=== PATIENT | female | born 1980 | race Caucasian/White ===

== ENCOUNTER 2018-04-27 01:55 | Inpatient (IN) | payer MEDICAID ==
[2018-04-27 01:56] VITALS: BMI 31.1
[2018-04-27 02:05] VITALS: O2SAT 99
--- NOTE | 2018-04-27 02:15 | C.PDOC ---
History Of Present Illness Patient was seen and medically cleared in [place] and accepted for transfer by Dr. Arechiga for psych admission. Patient has no physical complaints at this time. Time Seen by Provider: 04/27/18 02:14 Chief Complaint (Nursing): Psychiatric Evaluation History Per: Patient, EMS History/Exam Limitations: no limitations Onset/Duration Of Symptoms: Days Current Symptoms Are (Timing): Still Present Suicide/Self Injury Attempted (Context): None Modifying Factor(s): None Severity: None Pain Scale Rating Of: 0 Associated Symptoms: Depression Involuntary Hold By: None Recent travel outside of the [place]: No Past Medical History Reviewed: Historical Data, Nursing Documentation, Vital Signs Vital Signs: Last Vital Signs Temp 98.5 F 04/27/18 02:01 Pulse 71 04/27/18 02:01 Resp 18 04/27/18 02:50 BP 137/79 04/27/18 02:01 Pulse Ox 99 04/27/18 02:18 - Medical History PMH: Anxiety, Depression Surgical History: Cholecystectomy Family History: States: No Known Family Hx - Social History Hx Alcohol Use: No Hx Substance Use: No Review Of Systems Constitutional: Negative for: Fever, Chills Cardiovascular: Negative for: Chest Pain, Palpitations Respiratory: Negative for: Cough, Shortness of Breath Gastrointestinal: Negative for: Nausea, Vomiting Physical Exam - Physical Exam Appears: Non-toxic Skin: Warm, Dry Head: Normacephalic Oral Mucosa: Moist Chest: Symmetrical, No Tenderness Cardiovascular: Rhythm Regular Respiratory: No Rales, No Rhonchi, No Wheezing Gastrointestinal/Abdominal: Soft, No Tenderness Neurological/Psych: Oriented x3 Gait: Steady ED Course And Treatment O2 Sat by Pulse Oximetry: 99 Pulse Ox Interpretation: Normal Disposition Discussed With : Shaunna Arechiga Comment: accepted the pt on his service and took over the care at 2:15 AM Doctor Will See Patient In The: Hospital Counseled Patient/Family Regarding: Studies Performed, Diagnosis - Disposition Disposition: HOSPITALIZED Disposition Time: 02:14 Condition: FAIR - POA Present On Arrival: None - Clinical Impression Clinical Impression: Major depression - Scribe Statement The provider has reviewed the documentation as recorded by the Scribe Torsten Dejesus All medical record entries made by the Scribe were at my direction and personally dictated by me. I have reviewed the chart and agree that the record accurately reflects my personal performance of the history, physical exam, medical decision making, and the department course for this patient. I have also personally directed, reviewed, and agree with the discharge instructions and disposition. Decision To Admit - Pt Status Changed To: Hospital Disposition Of: Inpatient - Admit Certification Admit to Inpatient:: After my assessment, the patient will require hospitalization for at least two midnights. This is because of the severity of symptoms shown, intensity of services needed, and/or the medical risk in this patient being treated as an outpatient. - InPatient: Physician Admission Certification: I certify that this patient requires 2 or more midnights of care for the following reason:: After my assessment, the patient will require hospitalization for at least two midnights. This is because of the severity of symptoms shown, intensity of services needed, and/or the medical risk in this patient being treated as an outpatient. - . Bed Request Type: Psychiatry Admitting Physician: Shaunna Arechiga Patient Diagnosis: Major depression
[2018-04-27 03:12] VITALS: RESP 18
--- NOTE | 2018-04-27 03:59 | PCM.BM ---
Treatment Plan Problems - Problems identified on initial assessmt DEPRESSION Date Initiated: 04/27/18 Time Initiated: 03:15 Assessment reference: NA Status: Active SUICIDAL IDEATION Date Initiated: 04/27/18 Time Initiated: 03:15 Assessment reference: NA Status: Active Treatment assets and liabiliti Patient Assests: adapts well, cooperative, self-reliant, ADL independent, good support system, negotiates basic needs Patient Liabilities: relationship conflicts, medical problems - Milieu Protocol Maintain good personal hygiene: daily Encourage regular showers, daily Remind patient to perform daily oral care, daily Assist patient to perform ADL's Maintain personal safety: every shift Educate patient to report safety concerns to staff, every shift Monitor environment for contraband/sharps Medication safety: Monitor for expected outcome, potential side effects: every shift, Assess barriers to learning: every shift, Assess readiness for medication education: every shift
--- NOTE | 2018-04-27 10:46 | PCM.PSYCH ---
Initial Psychiatric Evaluation - Initial Psychiatric Evaluation Type of Admission: Voluntary Legal Status: Capacity Chief Complaint (in patient's own words): I was feeling frustrated and suicidal.' History of Present Illness and Precipitating Events: Pt is a 37 years old CF who lives with her BF and 2 kids was, a transferred from [facility] with diagnosis of Major Depressive Disorder, because of depressed mood and Suicidal Ideation. As per the ED note, patient has been on Prozac for quite sometimes and stop taking it because she was feeling like a Zombie. Patient claimed she become more depressed each day feeling very overwhelmed. Patient took a friends Fentanyl by snorting it so she could go to sleep and never wake up. Also, she claimed of suicide attempt last year by OD on Tramadol. She reports of racing of thoughts, flight of ideas, poor concentration and poor appetite. She also reports of irritability and poor sleep. She denies any auditory or visual hallucinations or any paranoia. She reports a past history of suicidal attempt by overdose, last year. She also reports at times depressed mood, feelings of hopelessness and helplessness and poor sleep. She denies any drinking or any drugs. PMH: None reported Current Medications: Active Medications Generic Name Dose Route Start Last Admin Trade Name Freq PRN Reason Stop Dose Admin Hydroxyzine HCl 25 mg 04/27/18 03:20 04/27/18 03:29 Atarax PO 25 mg Q6 PRN Administration Anxiety Pneumococcal Polyvalent Vaccine 0.5 ml 04/29/18 10:00 Pneumovax 23 Vaccine IM 04/29/18 10:01 .ONCE ONE Past Psychiatric History - Past Psychiatric History Previous Treatment History: None Pertinent Medical Hx (Current Medical&Sleep Prob, Allergies): Allergies Allergy/AdvReac Type Severity Reaction Status Date / Time No Known Allergies Allergy Verified 12/28/17 22:18 No Known Home Med 04/27/18 Review of Systems - Review of Systems All systems: reviewed and no additional remarkable complaints except - Psychiatric Psychiatric: Anxiety, Irritability, Mood Swings, Suicidal Ideation Mental Status Examination - Personal Presentation Personal Presentation: Looks stated age - Affect Affect: Constricted, Depressed - Motor Activity Motor Activity: Psychomotor Agitation - Reliability in Providing Information Reliability in Providing Information: Fair - Speech Speech: Organized - Mood Mood: Depressed, Anxious - Formal Thought Process Formal Thought Process: Flight of ideas, Circumstantial - Obsessions/Compulsions Obsessions: No Compulsions: No - Cognitive Functions Orientation: Person, Place, Situation, Time Sensorium: Alert Attention/Concentration: Attentive Abstract Thinking: [place] Estimate of Intelligence: Below average Judgement: Imparied, as evidence by: Poor judgement, Imparied, as evidence by: Lack of insight into illness - Risk Risk: Suicidal, Diminished functioning - Strength & Assets Inventory Strength & Assets Inventory: Family support DSM 5 DX - DSM 5 DSM 5 Diagnosis: Bipolar disorder mixed severe without psychotic features - Recommended/Plan of Treatment Treatment Recommendations and Plan of Treatment: Bipolar disorder mixed severe without psychotic features CBT Psychoeducation Supportive therapy, group therapy, individual therapy Trazodone 50 mg by mouth daily at bedtime Hydroxyzine 25 mg by mouth every 6 hours when necessary Gabapentin 100 mg po TID Depakote 250 mg by mouth twice a day - Smoking Cessation Smoking Cessation Initiated: No
--- NOTE | 2018-04-28 14:19 | PCM.PYCHPN ---
Psychiatric Progress Note - Psychiatric Progress Note Patient seen today, length of contact: 15 min Patient Chief Complaint: I was feeling frustrated.' Problems Identified/Issues Discussed: Patient seen and evaluated, chart reviewed and discussed with the nurse. Patient remained irritable and reports racing of thoughts and flight of ideas. She remained isolated, confined and withdrawn. She reports improvement in her depressed mood and anxiety. Patient is compliant with medications and denies any side effects. Symptoms are improving but need more time to stabilize. Support and psychoeducation given. Medication Change: Yes Medical Record Reviewed: Yes Mental Status Examination - Cognitive Function Orientation: Person, Place, Situation, Time Memory: Intact Attention: WNL Concentration: Poor Association: WNL Fund of Knowledge: Poor - Mood Mood: Depressed, Anxious - Affect Affect: Constricted, Depressed - Speech Speech: Soft - Formal Thought Process Formal Thought Process: Flight of ideas, Circumstantial - Suicidal Ideation Suicidal Ideation: No - Homicidal Ideation Homicidal Ideation: No Goal/Treatment Plan - Goal/Treatment Plan Need for Continued Stay: Severe depression anxiety, Severe functional impairment Progress Toward Problem(s) and Goals/Treatment Plan: Bipolar disorder mixed severe without psychotic features CBT Psychoeducation Supportive therapy, group therapy, individual therapy Trazodone 50 mg by mouth daily at bedtime Hydroxyzine 25 mg by mouth every 6 hours when necessary Gabapentin 100 mg po TID Depakote 250 mg by mouth twice a day - Smoking Cessation Smoking Cessation Initiated: No
[2018-04-28] MEDS: Divalproex 500 mg ER Tab PO SCH (21:05)
[2018-04-29] MEDS ORDERED: Pneumococcal 23-Valent Vaccine IM ONE (10:00)
--- NOTE | 2018-04-29 12:03 | PCM.PYCHPN ---
Psychiatric Progress Note - Psychiatric Progress Note Patient seen today, length of contact: 16 min Patient Chief Complaint: I m feeling better.' Problems Identified/Issues Discussed: Patient seen and evaluated, chart reviewed and discussed with the nurse. She reports improvement in her depressed mood and racing of thoughts. She denies any AVH or any SI/HI. Patient is compliant with medications and denies any side effects. Symptoms are improving but need more time to stabilize. Support and psychoeducation given. Medication Change: Yes Medical Record Reviewed: Yes Mental Status Examination - Cognitive Function Orientation: Person, Place, Situation, Time Memory: Intact Attention: WNL Concentration: WNL Association: WNL Fund of Knowledge: Poor - Mood Mood: Depressed, Anxious - Affect Affect: Constricted, Depressed - Speech Speech: Soft - Formal Thought Process Formal Thought Process: Flight of ideas - Suicidal Ideation Suicidal Ideation: No - Homicidal Ideation Homicidal Ideation: No Goal/Treatment Plan - Goal/Treatment Plan Need for Continued Stay: Severe depression anxiety, Severe functional impairment Progress Toward Problem(s) and Goals/Treatment Plan: Bipolar disorder mixed severe without psychotic features CBT Psychoeducation Supportive therapy, group therapy, individual therapy Trazodone 50 mg by mouth daily at bedtime Hydroxyzine 25 mg by mouth every 6 hours when necessary Gabapentin 100 mg po TID Depakote 500 mg by mouth twice a day
[2018-04-29] MEDS: Divalproex 500 mg ER Tab PO SCH (21:01)
[2018-04-30 06:07] VITALS: BP 113/70; PULSE 71; TEMP 97.6
[2018-04-30] MEDS ORDERED: Divalproex 500 mg ER Tab PO SCH (10:00)
--- NOTE | 2018-04-30 10:20 | PCM.PYCHDC ---
Mental Status Examination - Mental Status Examination Orientation: Person, Place, Situation, Time Memory: Intact Mood: Neutral Affect: Constricted Speech: Soft Attention: WNL Concentration: WNL Association: WNL Fund of Knowledge: WNL Formal Thought Process: No Impairment Description of patient's judgement and insight: good, fair Psychotic Thoughts and Behaviors: denies any AVH Suicidal Ideation: No Current Homicidal Ideation?: No Discharge Summary - Discharge Note Reason for Hospitalization: Pt is a 37 years old CF who lives with her BF and 2 kids was, a transferred from [facility] with diagnosis of Major Depressive Disorder, because of depressed mood and Suicidal Ideation. As per the ED note, patient has been on Prozac for quite sometimes and stop taking it because she was feeling like a Zombie. Patient claimed she become more depressed each day feeling very overwhelmed. Patient took a friends Fentanyl by snorting it so she could go to sleep and never wake up. Also, she claimed of suicide attempt last year by OD on Tramadol. She reports of racing of thoughts, flight of ideas, poor concentration and poor appetite. She also reports of irritability and poor sleep. She denies any auditory or visual hallucinations or any paranoia. She reports a past history of suicidal attempt by overdose, last year. She also reports at times depressed mood, feelings of hopelessness and helplessness and poor sleep. She denies any drinking or any drugs. Consultations:: List each consultation separately and include: 1. Reason for request. 2. Findings. 3. Follow-up Summary of Hospital Course include:: 1. Description of specific treatment plan utilized for patients during their course of treatmen. 2. Summarize the time- course for resolution of acute symptoms and/or regressed behaviors. 3. Describe issues identified and worked on during hospitalization. 4. Describe medication utilized. 5. Describe medical problems identified and treated. 6. Reassessment of suicide risk Summary of Hospital Course: During the course of her stay, patient (pt) started progressively improving and no longer remained irritable, depressed, and suicidal. Her mood and anxiety were improved and she started attending groups and meetings and started socializing. Patient denied any feelings of hopelessness, helplessness, and worthlessness, denied any problem with the sleep or appetite, denied suicidal ideation or homicidal ideation. Pt denied any auditory or visual hallucinations. She denied any withdrawal symptoms. Some changes were made in her current medications and patient was discharged on following medications. She tolerated these medications very well and denied any side effects. [facility] - Final Diagnosis (DSM 5) Condition upon Discharge: FAIR DSM 5: Bipolar disorder mixed severe without psychotic features Disposition: HOME/ ROUTINE Follow-up Treatment Plan: Education: Pt was educated and counseled about the risks and benefits of taking and not taking medications. Pt was educated and counseled about the risks of drinking and abusing drugs. Pt was educated and counseled to go to the ER or call 911 if pt develop suicidal ideation or homicidal ideation, worsening of symptoms or severe side effects of the meds. Prescriptions/Medication Reconciliation: Divalproex [Depakote ER] 500 mg PO BID #60 ter Gabapentin [Neurontin] 100 mg PO BID #60 cap traZODone [Desyrel] 50 mg PO HS #30 tab - Smoking Cessation Smoking Cessation Medication prescribed: No - Antipsychotic Medications Pt discharged on 2 or more routine antipsychotic medications: No
== END 2018-04-30 11:22 | disposition home or self-care (01) | DRG 430 ==
LOC: C.ER 01:55 → C.5E 02:15
PROVIDERS: ADMIT Psychiatry & Neurology Psychiatry; ATTEND Psychiatry & Neurology Psychiatry
PROC: GZHZZZZ Group Psychotherapy (ICD-10-PCS; principal; 2018-04-27)
PROC: GZ58ZZZ Individual Psychotherapy, Cognitive-Behavioral (ICD-10-PCS; 2018-04-27)
PROC: GZ56ZZZ Individual Psychotherapy, Supportive (ICD-10-PCS; 2018-04-27)
DX: F31.63 Bipolar disorder, current episode mixed, severe, without psychotic features (principal); F41.9 Anxiety disorder, unspecified; R45.851 Suicidal ideations; Z91.5 Personal history of self-harm